=== PATIENT | male | born 1965 | race Caucasian/White ===

== ENCOUNTER 2019-08-13 17:36 | Inpatient (IN) | payer OTHER ==
[2019-08-13 18:23] VITALS: BMI 22.9
--- NOTE | 2019-08-13 19:45 | PDOC ---
Attending Attestation - Resident Resident Name: EltonKimberli - ED Attending Attestation I have performed the following: I have examined & evaluated the patient, The case was reviewed & discussed with the resident, I agree w/resident's findings & plan - HPI HPI: 08/13/19 20:29 [place] train; there were no seats; he felt unwell; he was squatting, and then he passed out and stooled himself. 08/13/19 23:39 Pt states that he made a salad at home with cheese and turkey and it may have made him sick. Pt feels warm to the touch, but rectal temp is afebrile - Physicial Exam PE: 08/13/19 23:17 Afebrile Pt is tachycardic Pt has S1S2 tachycardia Lungs CTAB abd soft NT ND no flank pain No edema of extremities - Medical Decision Making 08/13/19 21:49 Pt had a syncope; WBC elevation with left shift; CPK 529; Trop negative; CK index normal. Pt will have a flu culture sent. 08/13/19 21:[address] pending 08/13/19 23:[address] normal; CXR pending Pt will be admitted to tele unit. 08/13/19 23:39 PT is tachy to 140bpm; likely spiking temp. 08/13/19 23:50 Pt has air fluid levels on his CXR upright; 3 A/F levels seen; he will get a CT abd/ct 08/14/19 00:41 Pt's HR is now 124; he is feverish; Zosyn will be given CT scan pending Heart Score/ECG Review - ECG Intrepretation Rhythm: Regular Rhythm - Reading Reading: Normal - P and CT Delta Wave(s) Present: No WPW: No - QRS Poor R Wave Progression: No Q Wave Present: No - ST and T Flattened T Waves: No Prolonged Q-T Interval: No - ECG Impressions Normal ECG: No Non-specific ST Elevation: No Ischemic Changes: No Bradycardia: No Tachycardia: Sinus
[2019-08-13 20:05] LABS: BASO % 0.2 % (0-2.0); EOS % 0.1 % (0-4.5); HEMATOCRIT 49.8 % (35.4-49); HEMOGLOBIN 16.7 GM/dL (11.7-16.9); LYMPH % 3.4 % (8-40); MCH 31.2 pg (25.7-33.7); MCHC 33.5 g/dl (32.0-35.9); MEAN CELL VOLUME 93.1 fl (80-96); MEAN PLT VOLUME 8.3 fl (7.5-11.1); MONO % 4.3 % (3.8-10.2); PLATELET COUNT 277 K/MM3 (134-434); RBC 5.35 M/mm3 (4.00-5.60); RDW 13.2 % (11.9-15.9); WHITE BLOOD COUNT 13.8 K/mm3 (4.0-10.0)
[2019-08-13] MEDS ORDERED: SODIUM CHLORIDE 0.9% 500 ML INFUS.BAG IV ONE ×2 (20:33→23:40)
--- NOTE | 2019-08-13 20:38 | PDOC ---
History of Present Illness - General Chief Complaint: Syncope/Near Syncope Stated Complaint: SYNCOPE Time Seen by Provider: 08/13/19 18:08 - History of Present Illness Initial Comments: Clement Quinonez is a 54yo man with a PMH of HTN who presents after an episode of syncope on the train today. He states that he rushed to the train after work and felt nauseated; he believes that salad dressing he had at work had gone bad. Due to the nausea, he squatted down in the train as there were no seats available. He remained in the squatting position for 20-30 minutes, but he felt that he needed to get off the train due to continued nausea. He stood up as the train was starting to slow down, and he subsequently fainted within a minute of standing. He says that he fell to his knees first and bumped his left forehead on the ground. He remembers people asking if was OK. He was able to get up and walk off the train without difficulty, and he states that he felt better as soon as he was off the train. Several people who observed the event were concerned and called EMS. Mr Quinonez denies any chest pain, difficulty breathing, or vomiting associated with the syncope. He denies any infectious symptoms including cough, vomiting/ diarrhea, congestion, fever/chills, or known sick contacts. He endorses bowel incontinence along with the syncope, which has never occurred previously. He denies any personal history of CAD or other cardiac abnormalities, though he says that his brother has stents. Past History - Past Medical History Allergies/Adverse Reactions: Allergies Allergy/AdvReac Type Severity Reaction Status Date / Time No Known Allergies Allergy Verified 08/13/19 18:08 - Psycho Social/Smoking Cessation Hx Smoking History: Unknown if ever smoked Hx Alcohol Use: No Drug/Substance Use Hx: No Review of Systems - Review of Systems Comments:: General: No fevers, + chills, no weight or appetite change, no malaise HEENT: No changes in vision, no changes in hearing, no congestion, no sore throat CV: No chest pain, no palpitations, no LE edema Pulm: No SOB, no cough, no wheezing GI: + nausea, no vomiting, no change in bowel habits, no melena : No frequency, no urgency, no dysuria Musc: No back pain, no joint swelling, no recent injury Skin: No rash, no lesions, no erythema Endo: No excessive thirst, no heat/cold intolerance Heme: No unusual bruising or bleeding, no swollen glands Neuro: + syncope, no numbness/tingling, no focal weakness Vasc: No claudication Psych: No recent change in mood, no SI or HI *Physical Exam - Vital Signs Last Vital Signs Temp Pulse Resp BP Pulse Ox 98.0 F 102 H 18 127/87 98 08/13/19 18:15 08/13/19 18:15 08/13/19 18:15 08/13/19 18:15 08/13/19 18:15 - Physical Exam General: Comfortable, no acute distress HEENT: PERRL, EOMI, MMM, voice normal, normal neck ROM Cards: RRR, no murmur appreciated Pulm: Comfortable on room air, clear to auscultation bilaterally Abd: Soft, nontender, nondistended Ext: Atraumatic. No LE edema. ROM intact. WWP Skin: Normal color, no rashes or lesions Neuro: A&Ox3, CN grossly intact, normal speech, motor/sensory grossly intact and symmetric Psych: Mood appropriate to situation ED Treatment Course - LABORATORY CBC & Chemistry Diagram: 08/13/19 19:40 08/13/19 19:40 - RADIOLOGY Radiology Studies Ordered: Category Date Time Status CHEST PA & LAT [RAD] Stat Radiology 08/13/19 18:24 Ordered Medical Decision Making - Medical Decision Making 08/13/19 19:39 Clement Quinonez is a 54yo man with a PMH of HTN who presents after an episode of syncope on the train today. He reports feeling nauseated and lightheaded after rushing to the train, and he spent 20-30 minutes in a squatting position prior to fainting. - Appears to be true syncopal event - May be secondary to arrhythmia, possible ACS due to nausea w/ exertion. May be vasovagal due to squatting for lengthy period - CBC, CMP, trop, EKG, CXR 08/13/19 20:59 - Labs reviewed. Slight leukocytosis to 13. Trop negative. Chemistry slightly hemolized w/ potassium 5.1. - Pt to be taken to CT 08/13/19 23:38 - CT head completed, reviewed in ED. No acute abnormalities noted, radiology read pending - CXR to be completed - Worsening tachycardia, will give additional IVF. Rectal temp 99.5 when checked 08/14/19 00:35 - CT head negative - CXR with air/fluid levels noted. CT abd/pelvis ordered for additional evaluation 08/14/19 00:51 - Orthostatic vitals completed. Not orthostatic, minimal change from laying to standing - Pt to be signed out to Dr Wilson for the remainder of his ED care. Discussed with Dr Azra Conde PGY2 Discharge - Discharge Information Problems reviewed: Yes Clinical Impression/Diagnosis: Syncope and collapse, Tachycardia - Admission Yes - Follow up/Referral - Patient Discharge Instructions - Post Discharge Activity
[2019-08-13 20:48] LABS: ALBUMIN 4.8 g/dl (3.4-5.0); ALK PHOS 68 U/L (45-117); ANION GAP 6 MMOL/L (8-16); BILIRUBIN,TOTAL 0.8 mg/dL (0.2-1); BLOOD UREA NITROGEN 13.9 mg/dL (7-18); CHLORIDE 101 mmol/L (98-107); CO2 29 mmol/L (21-32); GLUCOSE,RANDOM 94 mg/dL (74-106); POTASSIUM 5.1 mmol/L (3.5-5.1); SGOT/AST 75 U/L (15-37); SGPT/ALT 59 U/L (13-61); SODIUM 135 mmol/L (136-145); TOT PROT 8.7 g/dl (6.4-8.2)
[2019-08-13 21:51] LABS: PLATELET ESTIMATE ADEQUATE
[2019-08-13] MEDS ORDERED: ACETAMINOPHEN 1000 MG/100 ML VIAL (NON FORMULARY) IVPB ONE (23:40)
--- NOTE | 2019-08-14 00:36 | PN ---
Teaching Attending Note Name of Resident: Alex Flannery ATTENDING PHYSICIAN STATEMENT I saw and evaluated the patient. I reviewed the resident's note and discussed the case with the resident. I agree with the resident's findings and plan as documented. SUBJECTIVE: Patient is a 54 year old man with a PMH of HTN and Asthma who presents after an episode of syncope on the train today. He states that he rushed to the train after work and felt nauseated; he believes that salad dressing he had at work had gone bad. Due to the nausea, he squatted down in the train as there were no seats available. He remained in the squatting position for 20-30 minutes, but he felt that he needed to get off the train due to continued nausea. He stood up as the train was starting to slow down, and he subsequently fainted within a minute of standing. He says that he fell to his knees first and bumped his left forehead on the ground. He remembers people asking if he was okay. He was able to get up and walk off the train without difficulty, and he states that he felt better as soon as he was off the train. Several people who observed the event were concerned and called EMS. He denies chest pain, difficulty breathing, or vomiting associated with the syncope. Denies cough, diarrhea, congestion, fever , chills, or known sick contacts. He had bowel incontinence along with the syncope, which has never occurred previously. Has FH of CAD - his brother has stents. Denies alcohol, tobacco or illicit drug use. No recent travels. OBJECTIVE: Alert Vital Signs Period Temp Pulse Resp BP Sys/Morrell Pulse Ox Last 24 Hr 98.0 F-99.9 F 102-124 14-18 107-127/64-87 93-98 HEENT: No Jaundice, eye redness or discharge, PERRLA, EOMI. Normocephalic, atraumatic. External ears are normal and hearing is grossly intact. No nasal discharge. Neck: Supple, nontender. No palpable adenopathy or thyromegaly. No JVD Chest: Good effort. Clear to auscultation and percussion. Heart: Regular. No S3, rub or murmur Abdomen: Not distended, soft, nontender and no HSM. No rebound or guarding. Normal bowel sounds. Ext: Peripheral pulses intact. No leg edema. Skin: Warm and dry. No petechiae, rash or ecchymosis. Neuro: Alert. Oriented x3. CN 2-12 grossly intact. Sensation grossly intact in all four extremities and DTR are symmetric. Psych: Appropriate mood and affect. Good insight. Current Medications Generic Name Dose Route Start Last Admin Trade Name Freq PRN Reason Stop Dose Admin Piperacillin Sod/Tazobactam 50 mls @ 100 mls/hr 08/14/19 00:40 Sod 3.375 gm/ Dextrose IVPB 08/14/19 01:09 ONCE ONE Protocol Abnormal Lab Results 08/13/19 08/13/19 19:40 19:40 WBC 13.8 H Hct 49.8 H Absolute Neuts (auto) 12.7 H Neutrophils % 92.0 H Neutrophils % (Manual) 91.0 H Lymphocytes % 3.4 L Lymphocytes % (Manual) 5.0 L Monocytes % (Manual) 3 L Sodium 135 L Anion Gap 6 L AST 75 H Creatine Kinase 529 H CK-MB (CK-2) 5.5 H Total Protein 8.7 H ASSESSMENT AND PLAN: 1. Syncope - Cause unclear, but possibly vasovagal with underlying toxigenic food poisoning. No acute abnormality on head CT. No acute lung findings on CXR but shows distended stomach with air/fluid level. Flu swab is negative. Leukocytosis may be due to stress but UA is pending - will repeat CBC. Will get urine toxicology, CT abdomen/pelvis, hydrate with IV NS, monitor on telemetry, do neurochecks, implement fall precautions, get ECHO and consult Cardiology and Neurology. EKG shows sinus tachycardia at 115/minute, LAE and inferior infarct of undetermined age - no prior EKG available for comparison. Initial troponin is negative. Will repeat EKG and troponin to rule out ACS. Will continue comprehensive care for all of patients comorbid conditions including Duoneb PRN for asthma. 2. Hypertension - Restart suitable outpatient antihypertensive drugs when clinically appropriate. Revise regimen to ensure [id number] excellent BP control and program counselor patient on the injurious effects of uncontrolled hypertension. Nonpharmacologic measures to control hypertension like weight loss , salt restriction and exercise discussed. Importance of adherence to treatment regimen and attainment of normotension emphasized. 3. DVT prophylaxis - Lovenox 40 mg SQ q 24 hours. 4. Advance directives - Full code
[2019-08-14] MEDS ORDERED: ACETAMINOPHEN INJECTION 100 ML IVPB ONE (00:39)
[2019-08-14] MEDS ORDERED: PIPERACILLIN/TAZOB 3.375 GM 3.375 GM in DEXTROSE 5%-WATER - 50 ML IVPB ONE (00:40)
--- NOTE | 2019-08-14 01:18 | PDOC ---
*Physical Exam - Vital Signs Last Vital Signs Temp Pulse Resp BP Pulse Ox 99.9 F H 125 H 14 127/75 93 L 08/14/19 00:00 08/14/19 00:51 08/14/19 00:00 08/14/19 00:51 08/14/19 00:00 ED Treatment Course - LABORATORY CBC & Chemistry Diagram: 08/13/19 19:40 08/13/19 19:40 - ADDITIONAL ORDERS Additional order review: Laboratory Results 08/13/19 19:40 Sodium 135 L Potassium 5.1 Chloride 101 Carbon Dioxide 29 Anion Gap 6 L BUN 13.9 Creatinine 1.0 Est GFR (CKD-EPI)AfAm 99.85 Est GFR (CKD-EPI)NonAf 86.15 Random Glucose 94 Calcium 10.0 Total Bilirubin 0.8 AST 75 H ALT 59 Alkaline Phosphatase 68 Creatine Kinase 529 H Creatine Kinase Index 1.0 CK-MB (CK-2) 5.5 H Troponin I < 0.02 Total Protein 8.7 H Albumin 4.8 08/13/19 19:40 RBC 5.35 MCV 93.1 MCHC 33.5 RDW 13.2 MPV 8.3 Neutrophils % 92.0 H Lymphocytes % 3.4 L Monocytes % 4.3 Eosinophils % 0.1 Basophils % 0.2 - Medications Given in the ED: ED Medications Discontinued Medications Generic Name Dose Route Start Last Admin Trade Name Maxwellq PRN Reason Stop Dose Admin Acetaminophen 1,000 mg 08/13/19 23:40 08/14/19 00:47 Ofirmev Injection - IVPB 08/13/19 23:41 1,000 mg ONCE ONE Administration Sodium Chloride 1,000 ml 08/13/19 20:33 08/13/19 21:22 Normal Saline - IV 08/13/19 20:34 1,000 ml ONCE ONE Administration Sodium Chloride 1,000 ml 08/13/19 23:40 08/14/19 01:03 Normal Saline - IV 08/13/19 23:41 1,000 ml ONCE ONE Administration Medical Decision Making - Medical Decision Making 08/14/19 01:16 Signed out to me by Dr. Conde. 54M otherwise healthy with HTN presents with syncopal episode. Has had nausea, ran to train, squatted in train for 30 mins, stood up and had syncopal event with fecal incontinence. Denies chest pain/SOB/dizziness, tongue-biting. CTH negative, CXR has air/fluid levels. Labs WNL. Tachycardia with developing fever. [] CTAP [] admit tele for syncope 08/14/19 02:[address] Flannery with admitting team, good for admit to tele under Dr. Sal. Still pending CTAP. Discharge - Discharge Information Problems reviewed: Yes Clinical Impression/Diagnosis: Syncope and collapse, Tachycardia - Follow up/Referral - Patient Discharge Instructions - Post Discharge Activity
[2019-08-14] MEDS ORDERED: PIPERACILLIN/TAZOB 3.375 GM 3.375 GM/50 ML BAG IVPB ONE (01:36)
--- NOTE | 2019-08-14 02:01 | HP ---
CHIEF COMPLAINT: nausea, witnessed fall and collapse PCP: Dr. Aguila HISTORY OF PRESENT ILLNESS: Pt. is a 54 y.o. M w/ PMHx. of HTN and Asthma presents after falling on the train earlier today. Pt. states that he ate some questionable deli meats in his salad earlier today and was feeling "queezy." Pt. ran to the train but while on the train he had to squat for about 30 min because of nausea. When Pt. stood up and left the train he dropped to his knees and then hit his head. Pt. states that the next thing he remembers was that he lost continence of his bowel and that people were standing around him asking him if he was ok and to call an ambulance. Pt. endorses lightheadedness, chills and abdominal pain at that time. Pt. denies anything ever happening like this in the past, any recent illness, any recent antibiotic use, chest pain, or shortness of breath. Pt states this has never happened before. Pt. denies any history of seizures. Pt. endorses that his brother has heart disease. Pt. is an insurance administrative assistant. ER course was notable for: (1)Head CT, CXR, NS x 2L, EKG (2)Orthostatic VS + (3) Recent Travel: No PAST MEDICAL HISTORY: As above PAST SURGICAL HISTORY: Left 4th finger surgery Social History: Smoking: Cigar every couple years Alcohol: occasional 1-2 drinks Drugs: Remote marijuana use as a teenager Allergies Lisinopril - Cough Levaquin- Hives/ Itching Cefetin- Losing taste HOME MEDICATIONS: Needs Reconciliation of Meds Pt. states he takes ASA 81mg, Norvasc 10 mg?, Qvar inhaler, Flonase and Monteleukast REVIEW OF SYSTEMS As above PHYSICAL EXAMINATION Vital Signs - 24 hr 08/13/19 08/13/19 08/14/19 18:15 22:32 00:00 Temperature 98.0 F 99.3 F 99.9 F H Pulse Rate 102 H Pulse Rate [ 110 H 124 H Left Radial] Pulse Rate [ Left side Standing] Pulse Rate [ Left side Supine] Respiratory 18 18 14 Rate Blood Pressure 127/87 Blood Pressure [Left side Standing] Blood Pressure [Left side Supine] Blood Pressure 120/75 107/64 [Right Arm] O2 Sat by Pulse 98 97 93 L Oximetry (%) 02/01/20 00:51 Temperature Pulse Rate Pulse Rate [ Left Radial] Pulse Rate [ 135 H Left side Standing] Pulse Rate [ 125 H Left side Supine] Respiratory Rate Blood Pressure Blood Pressure 114/74 [Left side Standing] Blood Pressure 127/75 [Left side Supine] Blood Pressure [Right Arm] O2 Sat by Pulse Oximetry (%) GENERAL: Awake, alert, and fully oriented, in no acute distress. HEAD: Normal with no signs of trauma. EYES: Sclera anicteric, conjunctiva clear. EARS, NOSE, THROAT: Ears normal, nares patent, oropharynx clear without exudates. Dry mucous membranes. No tongue lacerations LUNGS: Breath sounds equal, clear to auscultation bilaterally. No wheezes, and no crackles. No accessory muscle use. HEART: Regular rate and rhythm, normal S1 and S2 without murmur ABDOMEN: Soft, nontender, not distended, normoactive bowel sounds, no guarding, no rebound, no masses. MUSCULOSKELETAL: Normal range of motion at all joints. No bony deformities or tenderness. No CVA tenderness. UPPER EXTREMITIES: 2+ radial pulses, warm, well-perfused. No cyanosis. No clubbing. No peripheral edema. LOWER EXTREMITIES: 2+ dorsal pedal pulses, warm, well-perfused. No calf tenderness. No peripheral edema. NEUROLOGICAL: Normal speech. Gait not assessed. PSYCHIATRIC: Cooperative. Good eye contact. Appropriate mood and affect. SKIN: Warm, dry, normal turgor Laboratory Results - last 24 hr 08/13/19 08/13/19 08/13/19 19:40 19:40 22:30 WBC 13.8 H RBC 5.35 Hgb 16.7 Hct 49.8 H MCV 93.1 MCH 31.2 MCHC 33.5 RDW 13.2 Plt Count 277 MPV 8.3 Absolute Neuts (auto) 12.7 H Total Counted 100 Neutrophils % 92.0 H Neutrophils % (Manual) 91.0 H Band Neutrophils % 1.0 Lymphocytes % 3.4 L Lymphocytes % (Manual) 5.0 L Monocytes % 4.3 Monocytes % (Manual) 3 L Eosinophils % 0.1 Basophils % 0.2 Nucleated RBC % 0 Platelet Estimate Adequate Platelet Comment No clumping noted Sodium 135 L Potassium 5.1 Chloride 101 Carbon Dioxide 29 Anion Gap 6 L BUN 13.9 Creatinine 1.0 Est GFR (CKD-EPI)AfAm 99.85 Est GFR (CKD-EPI)NonAf 86.15 Random Glucose 94 Calcium 10.0 Total Bilirubin 0.8 AST 75 H ALT 59 Alkaline Phosphatase 68 Creatine Kinase 529 H Creatine Kinase Index 1.0 CK-MB (CK-2) 5.5 H Troponin I < 0.02 Total Protein 8.7 H Albumin 4.8 Influenza A (Rapid) Negative Influenza B (Rapid) Negative ASSESSMENT/PLAN: Pt. is a 54 y.o. M w/ PMHx. of HTN and Asthma presents after falling on the train earlier today. Pt. states that he ate some questionable deli meats in his salad earlier today and was feeling "queezy." #Syncope Orthostatic VS positive as there was an increase in HR by 10, without significant changes in BP. Suspect vasovagal reaction 2/2 viral illness vs. food poisoning Tachycardic c/w IVF f/u Rpt. trop and EKG f/u Echo Cardiology (Dr. Casillas) and Neurology (Dr. Clayton) consults appreciated f/u carotid Doppler #Nausea secondary to viral illness? f/u stat CBC Temperature rising f/u BCx., Pt. received 1 dose of Zosyn f/u CT A/P, CXR shows prominent air fluid level LA: 1.0 f/u UA and Utox Unclear of significance of elevated total protein, HIV test? #HTN #Asthma c/w home medications requires medication reconciliation PRN Duonebs #FEN NS @ 100 monitor electrolytes and replete as needed. Potassium at 5.1, will trend Sodium controlled diet #DVT Ppx. Hep TID Visit type - Emergency Visit Emergency Visit: Yes ED Registration Date: 08/14/19 Care time: The patient presented to the Emergency Department on the above date and was hospitalized for further evaluation of their emergent condition. - New Patient This patient is new to me today: Yes Date on this admission: 08/14/19 - Critical Care Critical Care patient: No ATTENDING PHYSICIAN STATEMENT I saw and evaluated the patient. I reviewed the resident's note and discussed the case with the resident. I agree with the resident's findings and plan as documented. SUBJECTIVE: OBJECTIVE: ASSESSMENT AND PLAN:
[2019-08-14] MEDS ORDERED: SODIUM CHLORIDE 1,000 ML IV SCH (03:45)
[2019-08-14] MEDS ORDERED: ONDANSETRON 4 MG/2 ML VIAL IVPUSH PRN (04:12)
[2019-08-14] MEDS ORDERED: ALBUTEROL SO4 2.5/IPRATROPIUM 0.5 INH SOL 3 ML VIAL.NEB. NEB PRN (05:03)
[2019-08-14 05:52] VITALS: TEMP 98.3
[2019-08-14 06:30] LABS: BASO % 0.1 % (0-2.0); EOS % 0.1 % (0-4.5); HEMATOCRIT 41.2 % (35.4-49); HEMOGLOBIN 14.1 GM/dL (11.7-16.9); LYMPH % 9.9 % (8-40); MCH 31.5 pg (25.7-33.7); MCHC 34.2 g/dl (32.0-35.9); MEAN CELL VOLUME 92.1 fl (80-96); MEAN PLT VOLUME 8.2 fl (7.5-11.1); MONO % 5.6 % (3.8-10.2); NEUT % 84.3 % (42.8-82.8); PLATELET COUNT 219 K/MM3 (134-434); RBC 4.48 M/mm3 (4.00-5.60); RDW 13.2 % (11.9-15.9); WHITE BLOOD COUNT 7.1 K/mm3 (4.0-10.0)
[2019-08-14] MEDS ORDERED: HEPARIN NA (PORCINE) 5,000 UNITS/ML 1ML VIAL ONE ×2 (06:55→14:07)
[2019-08-14] MEDS: HEPARIN NA (PORCINE) 5,000 UNITS/ML 1ML VIAL SQ SCH ×3 (07:07→14:18)
[2019-08-14 07:33] LABS: ALBUMIN 3.4 g/dl (3.4-5.0); ALK PHOS 50 U/L (45-117); ANION GAP 7 MMOL/L (8-16); BILIRUBIN,TOTAL 0.6 mg/dL (0.2-1); BLOOD UREA NITROGEN 11.7 mg/dL (7-18); CALCIUM 8.5 mg/dL (8.5-10.1); CHLORIDE 110 mmol/L (98-107); CO2 25 mmol/L (21-32); CREATININE 0.9 mg/dL (0.55-1.3); GLUCOSE,RANDOM 84 mg/dL (74-106); SGOT/AST 32 U/L (15-37); SGPT/ALT 40 U/L (13-61); SODIUM 141 mmol/L (136-145); TOT PROT 6.2 g/dl (6.4-8.2)
[2019-08-14 08:28] LABS: COCAINE, UR NEGATIVE ng/ml (CUTOFF=300); METHADONE, UR NEGATIVE ng/ml (CUTOFF=300); OPIATES, URI NEGATIVE ng/ml (CUTOFF=300); PHENCYCLIDINE,URINE NEGATIVE ng/ml (CUTOFF=25); URINE AMPHETAMINES NEGATIVE ng/ml (CUTOFF=500); URINE BARBITURATES NEGATIVE ng/ml (CUTOFF=200); URINE BENZODIAZEPINES NEGATIVE ng/ml (CUTOFF=200)
[2019-08-14 08:37] LABS: URINE APPEARANCE CLEAR; URINE BILIRUBIN NEGATIVE (NEGATIVE); URINE COLOR YELLOW; URINE GLUCOSE (UA) NEGATIVE (NEGATIVE); URINE KETONE NEGATIVE (NEGATIVE); URINE LEUK ESTERASE NEGATIVE (NEGATIVE); URINE NITRITE NEGATIVE (NEGATIVE); URINE PROTEIN NEGATIVE (NEGATIVE); URINE UROBILINOGEN 0.2 mg/dL (0.2-1.0)
--- NOTE | 2019-08-14 10:11 | CON.CARD ---
Consult Consult Specialty:: CV - History of Present Illness Chief Complaint: passed out History of Present Illness: 54 y.o. M here with syncope Pt provides history of eating questionable deli meats in his salad earlier in the day, which caused GI upset. After running to catch a train he noted intense nausea--squatted for many minutes bc there was no available seat. though he would vomit, held it in until train stopped. Upon standing up and exiting the train he felt lightheaded, associated intense flushing/diaphoresis, ? brief chills, abdominal pain. Fell to ground, hit his head. says was unconscious extremely briefly, awoke as soon as hit the floor. no cp, palp, new neuro deficits. when awoke he noticed he lost continence of his bowel and that people were standing around him asking him if he was ok and to call an ambulance. never happened to him before. In ER: mildly tachycardic modestly orthostatic with overall stable BP, sats labs unremarkable, trop neg x 2 CT head unremarkable currently no nausea/abd pain. bowels feel mildly tight. no cp, sob, palp PMH: HTN asthma - Alcohol/Substance Use Hx Alcohol Use: No - Smoking History Smoking history: Unknown if ever smoked Home Medications - Allergies Allergies/Adverse Reactions: Allergies Allergy/AdvReac Type Severity Reaction Status Date / Time No Known Allergies Allergy Verified 08/13/19 18:08 - Home Medications Home Medications: Ambulatory Orders Amlodipine Besylate 5 mg PO DAILY 08/14/19 Aspirin 81 mg PO DAILY 08/14/19 Beclomethasone Dipropionate [Qvar] 8.7 gm IH BID 08/14/19 Fluticasone Prop 0.05% Nasal [Flonase -] 1 pump IN DAILY 08/14/19 Montelukast Na [Singulair -] 10 mg PO HS 08/14/19 Review of Systems - Review of Systems Constitutional: denies: Chills, Fever Eyes: denies: Eye Pain HENT: denies: Nasal Congestion Neck: denies: Stiffness Cardiovascular: denies: Palpitations Respiratory: denies: Orthopnea, PND Gastrointestinal: denies: Diarrhea, Rectal Bleeding Genitourinary: denies: Burning, Hematuria Musculoskeletal: denies: Muscle Pain Integumentary: denies: Rash Neurological: reports: Syncope. denies: Numbness, Seizure Endocrine: denies: Excessive Sweating Hematology/Lymphatic: denies: Excessive Bleeding Vital Signs: Vital Signs Temperature 98.3 F 08/14/19 04:30 Pulse Rate 98 H 08/14/19 04:30 Respiratory Rate 16 08/14/19 04:30 Blood Pressure 143/86 08/14/19 04:30 O2 Sat by Pulse Oximetry (%) 95 08/14/19 04:30 Constitutional: Yes: Well Nourished, No Distress Eyes: No: Sclera Icterus HENT: No: Nasal Congestion Neck: No: Decreased ROM Respiratory: Yes: CTA Bilaterally. No: Accessory Muscle Use, Rales, Wheezes Gastrointestinal: Yes: Normal Bowel Sounds. No: Distention, Hepatomegaly, Palpable Mass, Tenderness Cardiovascular: Yes: Regular Rate and Rhythm JVD: No Carotid Bruit: No PMI: Non-Displaced Heart Sounds: Yes: S1, S2. No: Gallop Murmur: No: Systolic Murmur, Diastolic Murmur Musculoskeletal: Yes: Other (No kyphosis) Extremities: No: Cool, Cyanosis Edema: No Peripheral Pulses: 2+ Left Carotid, 2+ Right Carotid, 2+ Left Doralis Pedis, 2+ Right Dorsalis Pedis Integumentary: No: Jaundice Neurological: Yes: Alert, Oriented (x3) Psychiatric: No: Agitated - Other Data Labs, Other Data: CBC, BMP 08/14/19 05:30 08/14/19 05:30 Troponin, BNP 08/13/19 08/14/19 19:40 05:30 Troponin I < 0.02 < 0.02 Troponin, BNP 08/13/19 08/14/19 19:40 05:30 Troponin I < 0.02 < 0.02 Assessment/Plan ECG #1: NSR, normal axis/intervals; nonsp ST-Ts inferior (no old) #2: normal (ST-Ts resolved) CXR: clear lungs/pleura vasovagal syncope: -clear vagal activity precipitants on history, with suggestive prodrome as well (LH, chills) -bowel incontinence not incompatible with vasovagal syncope, no other stigmata to suggest sz -he has no clinical features to suggest active myocardial ischemia (nonsp transient ST-Ts inferior do not require further inpt w/u--can have outpt eval for echo) HTN: -on amlodip 5 at home -BP normal here, modestly orthosatic, not pre-renal -rec hold amlodipine today, push po hydration -if no dizziness at home tomorrow can resume med and f/u with pmd for bp assessment next week in office NO FURTHER CV W/U OR MGMT REQUIRED IN HOSPITAL
--- NOTE | 2019-08-14 13:41 | DS ---
Physical Exam: SUBJECTIVE: Patient seen and examined Patient was admitted for diarrhea and syncope. He is much improved now OBJECTIVE: Vital Signs Period Temp Pulse Resp BP Sys/Morrell Pulse Ox Last 24 Hr 98.0 F-99.9 F 98-135 14-18 107-143/64-87 93-98 PHYSICAL EXAM GENERAL: The patient is awake, alert, and fully oriented, in no acute distress. HEAD: Normal with no signs of trauma. EYES: PERRL, extraocular movements intact, sclera anicteric, conjunctiva clear. ENT: Ears normal, nares patent, oropharynx clear without exudates, moist mucous membranes. NECK: Trachea midline, full range of motion, supple. LUNGS: Breath sounds equal, clear to auscultation bilaterally, no wheezes, no crackles, no accessory muscle use. HEART: Regular rate and rhythm, S1, S2 without murmur, rub or gallop. ABDOMEN: Soft, nontender, nondistended, normoactive bowel sounds, no guarding, no rebound, no hepatosplenomegaly, no masses. EXTREMITIES: 2+ pulses, warm, well-perfused, no edema. NEUROLOGICAL: Cranial nerves II through XII grossly intact. Normal speech, gait not observed. PSYCH: Normal mood, normal affect. SKIN: Warm, dry, normal turgor, no rashes or lesions noted. LABS Laboratory Results - last 24 hr 08/13/19 08/13/19 08/13/19 19:40 19:40 22:30 WBC 13.8 H RBC 5.35 Hgb 16.7 Hct 49.8 H MCV 93.1 MCH 31.2 MCHC 33.5 RDW 13.2 Plt Count 277 MPV 8.3 Absolute Neuts (auto) 12.7 H Total Counted 100 Neutrophils % 92.0 H Neutrophils % (Manual) 91.0 H Band Neutrophils % 1.0 Lymphocytes % 3.4 L Lymphocytes % (Manual) 5.0 L Monocytes % 4.3 Monocytes % (Manual) 3 L Eosinophils % 0.1 Basophils % 0.2 Nucleated RBC % 0 Platelet Estimate Adequate Platelet Comment No clumping noted Sodium 135 L Potassium 5.1 Chloride 101 Carbon Dioxide 29 Anion Gap 6 L BUN 13.9 Creatinine 1.0 Est GFR (CKD-EPI)AfAm 99.85 Est GFR (CKD-EPI)NonAf 86.15 Random Glucose 94 Lactic Acid Calcium 10.0 Phosphorus Magnesium Total Bilirubin 0.8 AST 75 H ALT 59 Alkaline Phosphatase 68 Creatine Kinase 529 H Creatine Kinase Index 1.0 CK-MB (CK-2) 5.5 H Troponin I < 0.02 Total Protein 8.7 H Albumin 4.8 Urine Color Urine Appearance Urine pH Ur Specific [place] Urine Protein Urine Glucose (UA) Urine Ketones Urine Blood Urine Nitrite Urine Bilirubin Urine Urobilinogen Ur Leukocyte Esterase Opiates Screen Methadone Screen Barbiturate Screen Phencyclidine Screen Ur Amphetamines Screen MDMA (Ecstasy) Screen Benzodiazepines Screen Cocaine Screen U Marijuana (THC) Screen Influenza A (Rapid) Negative Influenza B (Rapid) Negative 08/14/19 08/14/19 08/14/19 02:06 05:30 05:30 WBC 7.1 RBC 4.48 Hgb 14.1 Hct 41.2 D MCV 92.1 MCH 31.5 MCHC 34.2 RDW 13.2 Plt Count 219 D MPV 8.2 Absolute Neuts (auto) 6.0 Total Counted Neutrophils % 84.3 H Neutrophils % (Manual) Band Neutrophils % Lymphocytes % 9.9 D Lymphocytes % (Manual) Monocytes % 5.6 Monocytes % (Manual) Eosinophils % 0.1 Basophils % 0.1 Nucleated RBC % 0 Platelet Estimate Platelet Comment Sodium 141 Potassium 4.0 Chloride 110 H Carbon Dioxide 25 Anion Gap 7 L BUN 11.7 Creatinine 0.9 Est GFR (CKD-EPI)AfAm 113.41 Est GFR (CKD-EPI)NonAf 97.85 Random Glucose 84 Lactic Acid 1.0 Calcium 8.5 Phosphorus 3.0 Magnesium 2.0 Total Bilirubin 0.6 AST 32 ALT 40 Alkaline Phosphatase 50 Creatine Kinase 274 Creatine Kinase Index 0.9 CK-MB (CK-2) 2.5 Troponin I < 0.02 Total Protein 6.2 L Albumin 3.4 Urine Color Urine Appearance Urine pH Ur Specific [place] Urine Protein Urine Glucose (UA) Urine Ketones Urine Blood Urine Nitrite Urine Bilirubin Urine Urobilinogen Ur Leukocyte Esterase Opiates Screen Methadone Screen Barbiturate Screen Phencyclidine Screen Ur Amphetamines Screen MDMA (Ecstasy) Screen Benzodiazepines Screen Cocaine Screen U Marijuana (THC) Screen Influenza A (Rapid) Influenza B (Rapid) 08/14/19 08/14/19 07:00 07:00 WBC RBC Hgb Hct MCV MCH MCHC RDW Plt Count MPV Absolute Neuts (auto) Total Counted Neutrophils % Neutrophils % (Manual) Band Neutrophils % Lymphocytes % Lymphocytes % (Manual) Monocytes % Monocytes % (Manual) Eosinophils % Basophils % Nucleated RBC % Platelet Estimate Platelet Comment Sodium Potassium Chloride Carbon Dioxide Anion Gap BUN Creatinine Est GFR (CKD-EPI)AfAm Est GFR (CKD-EPI)NonAf Random Glucose Lactic Acid Calcium Phosphorus Magnesium Total Bilirubin AST ALT Alkaline Phosphatase Creatine Kinase Creatine Kinase Index CK-MB (CK-2) Troponin I Total Protein Albumin Urine Color Yellow Urine Appearance Clear Urine pH 7.0 Ur Specific [place] 1.014 Urine Protein Negative Urine Glucose (UA) Negative Urine Ketones Negative Urine Blood Negative Urine Nitrite Negative Urine Bilirubin Negative Urine Urobilinogen 0.2 Ur Leukocyte Esterase Negative Opiates Screen Negative Methadone Screen Negative Barbiturate Screen Negative Phencyclidine Screen Negative Ur Amphetamines Screen Negative MDMA (Ecstasy) Screen Negative Benzodiazepines Screen Negative Cocaine Screen Negative U Marijuana (THC) Screen Negative Influenza A (Rapid) Influenza B (Rapid) Testing done in the hospital his white count was initially 13.8 and today is 7.1 rest of CBC is normal other labs are normal. His carotid sonogram is negative for any blockage just minimal atherosclerosis The abdomen is nonspecific dilatation of the intestine with air-fluid level due to diarrhea. His CAT scan head is normal. 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 Patient is going to go home on same medication advance diet as tolerated drink more fluid Gatorade soups and rice discussed the family in detail. Advised patient symptoms get worse or any other symptoms start please go to the ER or call the doctor. Otherwise she is stable to go home. Discharge medications as he is taking in the home earlier Date of Admission:08/14/19 Date of Discharge: 08/14/19 Minutes to complete discharge: 30 Discharge Summary Problems reviewed: Yes Reason For Visit: SYNCOPE AND COLLAPSE, TACHYCARDIA Current Active Problems Syncope and collapse (Acute) Tachycardia (Acute) Condition: Improved - Instructions Diet, Activity, Other Instructions: brat diet and advance as tolerated Disposition: HOME - Home Medications Comprehensive Discharge Medication List: Ambulatory Orders Amlodipine Besylate 5 mg PO DAILY 08/14/19 Aspirin 81 mg PO DAILY 08/14/19 Beclomethasone Dipropionate [Qvar] 8.7 gm IH BID 08/14/19 Fluticasone Prop 0.05% Nasal [Flonase -] 1 pump IN DAILY 08/14/19 Montelukast Na [Singulair -] 10 mg PO HS 08/14/19 This patient is new to me today: Yes Date on this admission: 08/14/19 Emergency Visit: Yes ED Registration Date: 08/14/19 Care time: The patient presented to the Emergency Department on the above date and was hospitalized for further evaluation of their emergent condition. Critical Care patient: No - Discharge Referral Referred to [facility] Med P.C.: No
[2019-08-14 14:27] VITALS: BP 138/76; PULSE 79
--- NOTE | 2019-08-14 15:42 | EKG ---
Test Reason : Blood Pressure : / mmHG Vent. Rate : 093 BPM Atrial Rate : 093 BPM P-R Int : 180 ms QRS Dur : 094 ms QT Int : 342 ms P-R-T Axes : 050 058 023 degrees QTc Int : 425 ms NORMAL SINUS RHYTHM MINIMAL VOLTAGE CRITERIA FOR LVH, MAY BE NORMAL VARIANT NONSPECIFIC ST ABNORMALITY BORDERLINE ECG Confirmed by MD ROZINA, ABIGAIL ([id number]) on 08/14/2019 3:41:50 PM Referred By: Confirmed By:ABIGAIL HANDY MD
--- NOTE | 2019-08-14 15:53 | EKG ---
Test Reason : Blood Pressure : / mmHG Vent. Rate : 115 BPM Atrial Rate : 115 BPM P-R Int : 178 ms QRS Dur : 084 ms QT Int : 300 ms P-R-T Axes : 053 058 -45 degrees QTc Int : 415 ms SINUS TACHYCARDIA LEFT ATRIAL ENLARGEMENT CANNOT RULE OUT INFERIOR INFARCT , AGE UNDETERMINED ABNORMAL ECG NO PREVIOUS ECGS AVAILABLE Confirmed by MD HANDY MOYSES ([id number]) on 08/14/2019 3:52:57 PM Referred By: Confirmed By:ABIGAIL HANDY MD
== END 2019-08-14 14:27 | disposition home or self-care (01) | DRG 312 ==
LOC: JER 17:36 → JERBED 23:41 → OBSVTOIN 08-14 03:27
PROVIDERS: ADMIT Internal Medicine; ATTEND Internal Medicine
DX: R55 Syncope and collapse (principal); I10 Essential (primary) hypertension; A05.9 Bacterial foodborne intoxication, unspecified; J45.909 Unspecified asthma, uncomplicated; R00.0 Tachycardia, unspecified
CPT/HCPCS: 36415; 70450-TC; 71046-TC-FY; 74176-TC; 80053; 80307; 81003; 82550; 82553; 83605; 83735; 84100; 84484; 85025; 87040; 87804; 93005; 93010; 93880-TC; 99285-25; G0378; J0131; J1644; J7030